=== PATIENT | female | born 1960 ===

== ENCOUNTER 2021-07-14 05:58 | Inpatient (IN) | payer OTHER ==
[~2021-07-14] VITALS: Ht 157.4 cm; Wt 99.3 kg
[2021-07-14] MEDS ORDERED: ZOFRAN4 MG PO (10:52)
[2021-07-14] MEDS ORDERED: REDNESS RELIEVE15 ML OP (10:54)
[2021-07-14] MEDS ORDERED: LEVOTHYROXINE25 MCG PO (10:55)
[2021-07-14 11:11] LABS: BILIRUBIN Negative (Negative); BLOOD Negative (Negative); CLARITY Clear (Clear); COLOR Yellow (Yellow); GLUCOSE Negative (Negative); KETONE 1+ (Negative); LEUKO ESTERASE 1+ (Negative); NITRITE Negative (Negative); PH 6.5 (4.5-8.0); SPECIFIC GRAVITY 1.025 (1.001-1.030); UROBILINOGEN 0.2 E.U./dl (0.0-1.0)
[2021-07-14 11:21] LABS: HYALINE CAST 0-2; MUCOUS 1+
[2021-07-14 11:22] LABS: BACTERIA 2+
[2021-07-14 11:23] LABS: EPITHELIAL CELLS 0-2
[2021-07-14 11:34] VITALS: BP 152/88
[2021-07-14] MEDS ORDERED: CYCLOBENZAPRINE10 MG PO (13:24)
[2021-07-14] MEDS ORDERED: KETOROLAC10 MG PO (13:25)
[2021-07-14] MEDS ORDERED: DIALYVITE VIT125 MCG PO (13:58)
[2021-07-14] MEDS ORDERED: CALCIUM 600 +1 EAC5 PO (13:59)
[2021-07-14 20:00] VITALS: BP 146/85
[2021-07-15 06:46] LABS: ALBUMIN 3.7 gm/dl (3.1-4.5); BUN 15 mg/dl (7-24); CHLORIDE 104 mmol/L (98-107); CHOLESTEROL 132 mg/dL (<200); CREATININE 0.69 mg/dL (0.55-1.02); POTASSIUM 3.9 mmol/L (3.5-5.1); SGOT/AST 8 IU/L (3-35); SGPT/ALT 21 U/L (12-78); SODIUM 137 mmol/L (136-145)
[2021-07-15 06:56] LABS: ALKALINE PHOSPHATASE 78 U/L (45-117); LDL CHOLESTEROL 47 mg/dL (9-159); TOTAL PROTEIN 6.9 gm/dL (6.4-8.2); TRIGLYCERIDES 62 mg/dl (<150)
[2021-07-15 07:02] LABS: EOS # 0.1 10*3/uL (0.0-0.4); EOS % 1.2 % (1.0-4.0); HEMATOCRIT 40.3 % (37.0-47.0); LYMPH # 1.4 10*3/uL (1.3-4.4); LYMPH % 19.2 % (27.0-41.0); MEAN CELL VOLUME 84.5 fl (81.0-99.0); MEAN CORPUSCULAR HGB 27.7 pg (27.0-31.0); MEAN CORPUSCULAR HGB CONC 32.8 g/dl (33.0-37.0); MEAN PLATELET VOLUME 12.6 fl (9.6-12.3); MONO # 0.7 10*3/uL (0.1-1.0); MONO % 9.7 % (3.0-9.0); NEUT # 5.2 10*3/uL (2.3-7.9); NEUT % 69.6 % (47.0-73.0); PLATELET COUNT AUTOMATED 200 10*3/uL (130-400); RED BLOOD COUNT 4.77 10*6/uL (4.10-5.10); RED CELL DISTRI WIDTH 13.9 % (0-14.5); WHITE BLOOD COUNT 7.5 10*3/uL (4.8-10.8)
[2021-07-15 08:00] VITALS: BP 155/94
[2021-07-15 08:01] LABS: VITAMIN D, 25-HYDROXY 52.4 ng/mL (30-100)
[2021-07-15 19:47] VITALS: BP 151/87
[2021-07-16 08:02] VITALS: BP 152/80
[2021-07-16] MEDS ORDERED: DULOXETINE HCL60 MG PO (10:18)
[2021-07-16] MEDS ORDERED: Lidoderm 5% Patch T (10:18)
[2021-07-16] MEDS ORDERED: GABAPENTIN100 M2 PO (10:18)
[2021-07-16] MEDS ORDERED: CYCLOBENZAPRINE10 MG PO (10:18)
[2021-07-16] MEDS ORDERED: KETOROLAC10 MG PO (10:18)
== END 2021-07-16 13:00 | disposition home or self-care (01) | DRG 755 ==
LOC: 3N 05:58
PROVIDERS: ADMIT Psychiatry & Neurology Psychiatry; ATTEND Psychiatry & Neurology Psychiatry
DX: F43.23 Adjustment disorder with mixed anxiety and depressed mood (principal); F23 Brief psychotic disorder; E03.9 Hypothyroidism, unspecified; Z20.822 Contact with and (suspected) exposure to COVID-19; G51.0 Bell's palsy; K57.90 Diverticulosis of intestine, part unspecified, without perforation or abscess without bleeding; E06.3 Autoimmune thyroiditis; G47.33 Obstructive sleep apnea (adult) (pediatric); M41.9 Scoliosis, unspecified; Z86.19 Personal history of other infectious and parasitic diseases; Z82.49 Family history of ischemic heart disease and other diseases of the circulatory system; Z83.3 Family history of diabetes mellitus; Z88.2 Allergy status to sulfonamides; Z88.1 Allergy status to other antibiotic agents; Z91.041 Radiographic dye allergy status; Z91.040 Latex allergy status; Z79.899 Other long term (current) drug therapy